=== PATIENT | female | born 1965 | race Caucasian/White ===

== ENCOUNTER → 2017-03-08 | Outpatient (CLI) | payer MEDICAID | END | disposition disaster alternative care site (69) | LOC: GBCOE 12:49 | DX: Z12.31 Encounter for screening mammogram for malignant neoplasm of breast (principal); N60.09 Solitary cyst of unspecified breast; N63 Unspecified lump in breast | CPT/HCPCS: G0204; G0279 ==

== ENCOUNTER → 2017-05-22 | Outpatient (CLI) | payer MEDICAID | END | disposition disaster alternative care site (69) | LOC: GRAD 12:56 | DX: N85.2 Hypertrophy of uterus (principal); N83.202 Unspecified ovarian cyst, left side; R92.8 Other abnormal and inconclusive findings on diagnostic imaging of breast ==